=== PATIENT | female | born 1950 | race Asian ===

== ENCOUNTER 2016-12-16 19:55 | Inpatient (IN) | payer MEDICARE ==
[~2016-12-16] VITALS: Ht 147.3 cm; Wt 53.9 kg
--- NOTE | 2016-12-16 21:36 | ED CLINICAL REPORT ---
Clinical Report - Physicians/Mid Levels [facility] [address] [place] [address] 12/16/2016 19:57 Patient: TARA CHURCHILL Time Seen: 20:15; initial patient contact, initial documentation, patient care assumed. Arrived- By private vehicle. Historian- patient and spouse. HISTORY OF PRESENT ILLNESS Chief Complaint: ABDOMINAL PAIN. At its maximum, severity described as moderate. When seen in the E.D., severity described as moderate. Modifying factors. Not worsened by anything. Not relieved by anything. This started yesterday and is still present. It is described as "pain" and diffuse. No radiation. The patient has had nausea, vomiting and diarrhea. No loss of appetite. No additional abdominal pain. The patient has had recent travel. Similar symptoms previously: Frequently, as bad. ( feels same as when she had sbo). Recent medical care: Not recently seen/assessed. REVIEW OF SYSTEMS The patient has had constipation. No black stools, hematemesis, difficulty with urination, pain with urination or urinary frequency. No fever, chest pain or difficulty breathing. All systems otherwise negative, except as recorded above. PAST HISTORY See nurses notes. PROBLEMS: Bowel Obstruction. --20:08 Ana Carrera R.N. ADDITIONAL SURGERIES: . Partial hysterectomy. --20:08 Ana Carrera R.N. SOCIAL HISTORY Never smoker. No alcohol use or drug use. Recent travel by airplane in the last week- [facility]. No recent foreign travel or travel in endemic area. Did not participate in outdoor activities. Is an out of state resident. Visiting locally. FAMILY HISTORY Negative. ADDITIONAL NOTES The nursing notes have been reviewed with agreement regarding the chief complaint, HPI, ROS, PMH and patient medications and allergies. PHYSICAL EXAM Vital Signs: 12/16/2016 20:00 BP: 150/83. HR: 102. RR: 18. O2 saturation: 98%. Temp: 98.7 F. Pain level now: 7/10. Have been reviewed as abnormal and appear to be correct. Blood pressure normal. Tachycardic. Respiratory rate normal. Temperature normal. Oxygen saturation normal. Appearance: Alert. Oriented X3. No acute distress. Eyes: Pupils equal, round and reactive to light. Eyes normal inspection. Neck: Normal inspection. Neck supple. CVS: Normal heart rate and rhythm. Heart sounds normal. Pulses normal. Respiratory: No respiratory distress. Breath sounds normal. Chest nontender. Abdomen: Soft. Mild tenderness diffusely. No guarding, rebound tenderness or Jackson's, obturator or psoas sign present. Bowel sounds normal. No organomegaly. No mass. Tenderness present. Back: Normal inspection. Skin: Skin warm and dry. Normal skin color. No rash. Normal skin turgor. Extremities: Extremities exhibit normal ROM. No lower extremity edema. Neuro: Oriented X 3. No motor deficit. No sensory deficit. LABS, X-RAYS, AND EKG Abdominal CT: . IMPRESSION: 1. Moderate to high-grade mid to distal small bowel obstruction with overall pattern suggesting closed-loop obstruction (versus internal hernia). 2. Otherwise negative CT abdomen and pelvis. 3. Findings discussed with GERTRUDE Starkey. All CT scans at this facility use dose modulation, iterative reconstruction, and/or weight-based dosing when appropriate to reduce radiation dose to as low as reasonably achievable. Electronically Final signed by:Can Rico MD 12/16/2016 9:32:12 PM Technologist: NATALIE. The study was interpreted by the radiologist and discussed with the radiologist. Interpretation time: 21:30. Laboratory Tests: UA-Culture if indicated: (MICAELA: 12/16/2016 20:10) ( MsgRcvd 12/16/2016 21:05) Final results Test Result Flag Units (Reference) URINE COLOR DARK YELLOW URINE APPEARANCE CLEAR URINE GLUCOSE NEGATIVE (NEGATIVE) URINE BILIRUBIN ICTOTEST POSITIVE (NEGATIVE) URINE KETONE 3+ (NEGATIVE) URINE SPECIFIC GRAVITY >= 1.030 (1.010-1.030) URINE PH 6.0 (5.0-8.0) URINE PROTEIN 1+ (NEGATIVE) URINE UROBILINOGEN 0.2 EU/dL (0.2-1.0) URINE NITRITE NEGATIVE (NEGATIVE) URINE BLOOD 2+ (NEGATIVE) URINE LEUK ESTERASE NEGATIVE (NEGATIVE) URINE RBC 10-25 rbc/hpf (0-1) URINE WBC 0-1 wbc/hpf (0-1) URINE EPITHELIAL CELLS NONE SEEN EPI/hpf (0-5) URINE BACTERIA NONE SEEN (NONE SEEN) URINE COMMENT CULT NOT INDICATED MODERATE MUCOUSURINE CULTURES ARE SET-UP BASED ON THE FOLLOWING CRITERIA:POSITIVE NITRITEPOSITIVE LEUKOCYTE ESTERASEGREATER THAN 10 WHITE BLOOD CELLSMODERATE (2+) OR GREATER BACTERIA CBC w Diff: (MICAELA: 12/16/2016 20:10) ( [facility] 12/16/2016 20:38) Final results Test Result Flag Units (Reference) WHITE BLOOD COUNT 10.3 K/uL (4.5-11.5) RED BLOOD COUNT 4.25 M/uL (4.00-5.20) HEMOGLOBIN 13.5 gm/dL (12.0-16.0) HEMATOCRIT 40.1 % (36.0-46.0) MEAN CELL VOLUME 94 fL (80-100) MEAN CORPUSCULAR HGB 32 pg (26-34) MEAN CORPUSCULAR HGB CONC 34 g/dL (31-37) RED CELL DISTRIBUTION WIDTH 12.7 % (11.6-14.8) PLATELET COUNT 428 H K/uL (150-400) NEUTROPHIL % 83.7 H % (50-75) LYMPH % 10.7 L % (25-40) MONO % 5.2 % (3-14) EOSINOPHIL % 0.3 % (0-4) BASOPHIL % 0.1 % (0-2) CMP: (MICAELA: 12/16/2016 20:10) ( [facility] 12/16[facility] 20[facility]41) Final results Test Result Flag Units (Reference) GLUCOSE 118 H mg/dL (70-110) BUN 13 mg/dL (7-18) CREATININE 0.6 mg/dL (0.6-1.3) Estimated GFR >60 mL/min Estimated GFR- >60 mL/min Note: Persistent reduction over 3 months in eGFR<60 mL/min/1.73 m2 defines CKD. Patients with eGFR values>=60 mL/min/1.73 m2 may also have CKD if evidence ofpersistent proteinuria. Additional information may be foundat [email or web address].org. SODIUM 139 mmol/L (136-145) POTASSIUM 3.9 mmol/L (3.5-5.1) CHLORIDE 101 mmol/L (98-107) CARBON DIOXIDE 26 mmol/L (21-32) CALCIUM 9.2 mg/dL (8.5-10.1) TOTAL PROTEIN 8.6 H g/dL (6.4-8.2) ALBUMIN 4.4 g/dL (3.3-5.0) BILIRUBIN, TOTAL 0.7 mg/dL (0.0-1.0) ALKALINE PHOSPHATASE 63 U/L (46-116) AST (SGOT) 20 U/L (15-37) ALT (SGPT) 25 U/L (12-78) LIPASE 96 U/L (73-393) AMYLASE 87 U/L (25-115) . PROGRESS AND PROCEDURES Course of Care: 21:39 12/16/16. asked nurse Perez to give pt the h&p admit form. Discussed case with on-call health care provider, (call returned 21:36). Reviewed test results. Agreed upon treatment plan and decision to admit. Health care provider will see patient in ED. Patient counseled in person regarding the patient's stable condition, test results, diagnosis and need for admission. Differential Diagnosis: I considered gastritis, gastroenteritis, peptic ulcer disease, gastroesophageal reflux disease, diverticulitis, colon cancer, ulcerative colitis, Crohn's disease, small bowel obstruction, adhesions, functional bowel problems, obstipation, biliary colic, cholecystitis, cholelithiasis, hepatitis, pancreatitis, common bile duct obstruction and viral syndrome as a possible cause of abdominal pain in this patient. This is a partial list of diagnoses considered. Above considerations are based on history, physical exam, reassessment, laboratory data and other information. Differential diagnosis was discussed with patient. Disposition: Admitted to Acute Care. 21:36. Condition: good and stable. CLINICAL IMPRESSION Complete small bowel obstruction. (Electronically signed by Ammy Sarah A.R.N.P. 12/17/2016 13:18)
--- NOTE | 2016-12-16 21:36 | ED NURSING NOTES ---
Clinical Report - Nurses [facility] [address] [place] [address] 12/16/2016 19:57 Patient: TARA CHURCHILL TRIAGE Triage time 08:00. Acuity: LEVEL 3. Chief Complaint: ABDOMINAL PAIN. 20:14 12/16/16. Alert. No acute distress. THERESA COMA SCORE: [place] Coma Scale: 15- eyes open spontaneously (4); best verbal response- oriented x 4 (5); best motor response- obeys commands (6). --20:14 Ana Carrera R.N. 20:00 12/16/16. BP: 150/83. HR: 102. RR: 18. O2 saturation: 98%. Temp: 98.7 F. Pain level now: 02/09. --20:14 Ana Carrera R.N. Weight: 49.8 kg stated. Height/Length: 58 inches Per Patient. BMI: 23. --20:12 Ana Carrera R.N. Medications Vitamin D Oral. --20:07 Ana Carrera R.N. Iron Oral. --20:07 Ana Carrera R.N. Allergies None. --20:07 Ana Carrera R.N. History Arrived by private vehicle. Historian: patient and family. Accompanied by family. Primary physician called the ED prior to patient's arrival (Dr Coburn in [place]). This started yesterday. ( Patient traveled to [place] from [place] on Thursday. She states she started feeling abdominal pain last night). She has had nausea, vomiting, diarrhea and constipation. ( fatigue). Last oral intake by patient was breakfast yesterday. 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 PAST MEDICAL HX: Immunizations: up-to-date. Denies current . ( Patient's spouse reports that she has had several intestinal blockages in the past that have been resolved with a scope or through other intervention (walking, hydration, etc)). SOCIAL HX: Never smoker. No alcohol use or drug use. FALL RISK ASSESSMENT: Fall risk assessment completed. No fall risk identified. NUTRITIONAL RISK ASSESSMENT: The nutritional risk assessment revealed no deficiencies. FUNCTIONAL ASSESSMENT: Functional assessment: no impairments noted. LEARNING NEEDS ASSESSMENT: The learning needs assessment revealed no barriers. SKIN INTEGRITY ASSESSMENT: Skin integrity risk assessment completed. No skin integrity risk identified. --20:14 Ana Carrera R.N. PROBLEMS: Bowel Obstruction. --20:08 Ana Carrera R.N. ADDITIONAL SURGERIES: . Partial hysterectomy. --20:08 Ana Carrera R.N. Interventions ID band on patient. To treatment room. --20:14 Ana Carrera R.N. PHYSICAL ASSESSMENT 20:16 12/16/16. Ambulatory to room. GENERAL / NEURO / PSYCH: Alert. Oriented X 4. Appears in no acute distress. HEENT: Mucous membranes are pink. RESPIRATORY: Respirations not labored. Breath sounds within normal limits. CVS: Capillary refill less than 2 seconds. GI / : Abdomen soft and nontender. Diminished bowel sounds in the RLQ and LLQ. SKIN: Skin is warm and dry. --20:16 Ana Carrera R.N. NURSING PROGRESS NOTES Patient gowned. Two patient identifiers checked. Call light placed in reach. Side rails up x 1. Bed placed in lowest position. Brakes of bed on. Patient ready for evaluation- chart flagged and notification provided. Patient informed about reason for wait and about plan of care. --20:16 Ana Carrera R.N. 20:10 12/16/2016 Site #1 started via IV in the left antecubital space with an 20g angiocath, with aseptic technique and good blood return; one attempt. Blood drawn: rainbow set. Labeled in the presence of the patient and sent to the lab. Saline lock flushed with 10 mL saline. --20:19 Cole Jane R.N. 21:17 12/16/2016 Started bag #1 1000 mL IV Fluids IV NS (Saline); bolus of 999 mL over 1 hour(s) via site #1 via IV pump. Allergies verified and confirmed 5 rights. IV patency established. IV site checked: no pain, redness, or swelling. IV flushed thoroughly pre- and post-medication administration. Completed per protocol. --21:27 Ana Carrera R.N. 21:12/16/2016 Zofran (Ondansetron HCl) IVP 4 mg given over 2 minute(s) via site #1. Allergies verified and confirmed 5 rights. IV patency established. IV site checked: no pain, redness, or swelling. IV flushed thoroughly pre- and post-medication administration. IVP given by RN. --21:25 Ana Carrera R.N. 21:25 12/16/2016 Toradol IVP 30 mg given over 2 minute(s) via site #1. Allergies verified and confirmed 5 rights. IV patency established. IV site checked: no pain, redness, or swelling. IV flushed thoroughly pre- and post-medication administration. IVP given by RN. --21:25 Ana Carrera R.N. 22:12/16/2016 Zofran IVP Response: no adverse reaction symptoms have improved. --22:04 Ana Carrera R.N. 22:04 12/16/2016 Toradol IVP Response: no adverse reaction pain is improving. Symptoms have improved the patient feels better. --22:04 Ana Carrera R.N. 22:12/16/16. 16 fr NG tube inserted in right nostril with no difficulty. Placement confirmed by auscultation and return of gastric contents. Return: clear fluid. Attached to low and intermittent suction. Patient tolerated procedure well. --22:05 Ana Carrera R.N. 22:10 12/16/2016 IV Fluids IV NS Response: no adverse reaction. 12/16/2016 22:00 BP: 159/85. HR: 95. RR: 18. O2 saturation: 99%. Pain level now: 11/10. --22:43 Ana Carrera R.N. 22:20 12/16/2016 IV Fluids IV NS Discontinued: bag #1 completed. Total amount infused: 1000 mL. IV patency established. IV site checked: no pain, redness, or swelling. IV flushed thoroughly. --22:42 Ana Carrera R.N. DISPOSITION / DISCHARGE Departure time: 23:33. Condition at departure: stable. No learning barriers present. Admitted to Acute Care. Patient's personal items include: glasses, Other belongings; items were placed in belongings bag and transported with the patient. She did not have contacts, dentures or a hearing aid. FALL RISK ASSESSMENT: Fall risk assessment completed. No fall risk identified. --23:33 Hira Sigala R.N. 23:31 12/16/16. BP: 148/80. HR: 95. RR: 16. O2 saturation: 98%. Pain level now: 09/12. --23:33 Hira Sigala R.N. Admitted to Acute Care (210). Transported via stretcher by [employer] with IV. Report was given via a phone call. Report included patient's care, treatment, medications, reviewed medication reconcilliation, and condition (including any recent changes or anticipated changes). All questions were answered. Report was acknowledged and care was transferred. (to Alban MENJIVAR). --00:25 Ana Carrera R.N. ( Report given at 23:00). --00:25 Ana Carrera R.N. Locked/Released at 12/17/2016 0:25 by Ana Carrera R.N.
--- NOTE | 2016-12-16 21:36 | ED ORDER SUMMARY ---
..... Patient: TARA CHURCHILL OrderSheet [facility] VisitID: [id number] [address] [place] [address] 66y, F Registration Date/Time: 12/16/2016 ORDER SHEET Weight: 49.8 kg (stated) Allergies: None GENERAL ORDERS: CBC w Diff Urgent (20:19 12/16/2016 DDavis R.N. per protocol) (20:19 DDavis R.N.) CMP Urgent (20:19 12/16/2016 DDavis R.N. per protocol) (20:19 DDavis R.N.) UA-Culture if indicated Urgent (20:19 12/16/2016 DDavis R.N. per protocol) (20:19 DDavis R.N.) Lipase Urgent (20:19 12/16/2016 DDavis R.N. per protocol) (20:19 DDavis R.N.) Amylase Urgent (20:12/16/2016 DDavis R.N. per protocol) (20:19 DDavis R.N.) CT Abd/Pel w Cont (No) (pending) Urgent (20:34 12/16/2016 HBivens A.R.N.P.) (Ack 20:42 Chinoimana) (21:08 MCampbell) NG Tube (21:33 12/16/2016 HBivens A.R.N.P.) (Ack 21:46 JQuivey R.N.) (22:04 RMarsden R.N.) MEDICATION ORDERS: IV FLUIDS: IV Saline Lock (20:19 12/16/2016 DDavis R.N. per protocol) (20:19 DDavis R.N.) Toradol IV 30 mg (NOW) (20:34 12/16/2016 HBivens A.R.N.P.) (Ack 20:47 RMarsden R.N.) (21:25 RMarsden R.N.) Zofran IV 4 mg (NOW) (20:34 12/16/2016 HBivens A.R.N.P.) (Ack 20:47 RMarsden R.N.) (21:25 RMarsden R.N.) IV NS : initial bolus 1000 mL (1000 mL/hr), then none - (NOW) (20:35 12/16/2016 Jay A.R.N.P.) (Ack 20:47 RMarsden R.N.) (21:27 RMarsden R.N.) ORDER SHEET NOTES: [Electronically signed by Ana Carrera R.N. (00:12/17/2016)] [Electronically signed by Ammy SarahR.N.P. (13:18 12/17/2016)] [Electronically locked/signed by Ana Carrera R.N. (00:12/17/2016)]
--- NOTE | 2016-12-16 21:36 | DIAGNOSTIC IMAGING REPORT ---
PROCEDURE: CT ABD/PELVIS WITH CONTRAST INDICATION: Nausea and vomiting. Diarrhea. History of partial hysterectomy and section. TECHNIQUE: 100 ml of Isovue 300 were injected intravenously and axial images were obtained of the entire abdomen and pelvis with sagittal and coronal reformations. COMPARISON: None. FINDINGS: ABDOMEN: A moderate to high-grade mid to distal small bowel obstruction with relatively normal proximal and distal bowel loops. Appendix is not clearly identified, but no evidence of inflammatory process. Gallbladder, liver, spleen, pancreas, kidneys, and aorta are normal. Mild to moderate degenerative changes of the lumbar spine. PELVIS: Moderate to high-grade partial small bowel obstruction. Uterus and adnexal structures are atrophic. No evidence of free fluid. IMPRESSION: 1. Moderate to high-grade mid to distal small bowel obstruction with overall pattern suggesting closed-loop obstruction (versus internal hernia). 2. Otherwise negative CT abdomen and pelvis. 3. Findings discussed with GERTRUDE Starkey. All CT scans at this facility use dose modulation, iterative reconstruction, and/or weight-based dosing when appropriate to reduce radiation dose to as low as reasonably achievable.
--- NOTE | 2016-12-16 21:36 | ED ORDER SUMMARY ---
..... Patient: TARA CHURCHILL OrderSheet [facility] VisitID: [id number] [address] [place] [address] 66y, F Registration Date/Time: 12/16/2016 ORDER SHEET Weight: 49.8 kg (stated) Allergies: None GENERAL ORDERS: CBC w Diff Urgent (20:19 12/16/2016 DDavis R.N. per protocol) (20:19 DDavis R.N.) CMP Urgent (20:19 12/16/2016 DDavis R.N. per protocol) (20:19 DDavis R.N.) UA-Culture if indicated Urgent (20:19 12/16/2016 DDavis R.N. per protocol) (20:19 DDavis R.N.) Lipase Urgent (20:19 12/16/2016 DDavis R.N. per protocol) (20:19 DDavis R.N.) Amylase Urgent (20:12/16/2016 DDavis R.N. per protocol) (20:19 DDavis R.N.) CT Abd/Pel w Cont (No) (pending) Urgent (20:34 12/16/2016 HBivens A.R.N.P.) (Ack 20:42 Chinoimana) (21:08 MCampbell) NG Tube (21:33 12/16/2016 HBivens A.R.N.P.) (Ack 21:46 JQuivey R.N.) (22:04 RMarsden R.N.) MEDICATION ORDERS: IV FLUIDS: IV Saline Lock (20:19 12/16/2016 DDavis R.N. per protocol) (20:19 DDavis R.N.) Toradol IV 30 mg (NOW) (20:34 12/16/2016 HBivens A.R.N.P.) (Ack 20:47 RMarsden R.N.) (21:25 RMarsden R.N.) Zofran IV 4 mg (NOW) (20:34 12/16/2016 HBivens A.R.N.P.) (Ack 20:47 RMarsden R.N.) (21:25 RMarsden R.N.) IV NS : initial bolus 1000 mL (1000 mL/hr), then none - (NOW) (20:35 12/16/2016 Jay A.R.N.P.) (Ack 20:47 RMarsden R.N.) (21:27 RMarsden R.N.) ORDER SHEET NOTES: [Electronically signed by Ana Carrera R.N. (00:12/17/2016)] [Electronically signed by Ammy SarahR.N.P. (13:18 12/17/2016)] [Electronically locked/signed by Ana Carrera R.N. (00:12/17/2016)]
--- NOTE | 2016-12-16 21:36 | ED NURSING NOTES ---
Clinical Report - Nurses [facility] [address] [place] [address] 12/16/2016 19:57 Patient: TARA CHURCHILL TRIAGE Triage time 08:00. Acuity: LEVEL 3. Chief Complaint: ABDOMINAL PAIN. 20:14 12/16/16. Alert. No acute distress. THERESA COMA SCORE: [place] Coma Scale: 15- eyes open spontaneously (4); best verbal response- oriented x 4 (5); best motor response- obeys commands (6). --20:14 Ana Carrera R.N. 20:00 12/16/16. BP: 150/83. HR: 102. RR: 18. O2 saturation: 98%. Temp: 98.7 F. Pain level now: 02/09. --20:14 Ana Carrera R.N. Weight: 49.8 kg stated. Height/Length: 58 inches Per Patient. BMI: 23. --20:12 Ana Carrera R.N. Medications Vitamin D Oral. --20:07 Ana Carrera R.N. Iron Oral. --20:07 Ana Carrera R.N. Allergies None. --20:07 Ana Carrera R.N. History Arrived by private vehicle. Historian: patient and family. Accompanied by family. Primary physician called the ED prior to patient's arrival (Dr Coburn in [place]). This started yesterday. ( Patient traveled to [place] from [place] on Thursday. She states she started feeling abdominal pain last night). She has had nausea, vomiting, diarrhea and constipation. ( fatigue). Last oral intake by patient was breakfast yesterday. 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 PAST MEDICAL HX: Immunizations: up-to-date. Denies current . ( Patient's spouse reports that she has had several intestinal blockages in the past that have been resolved with a scope or through other intervention (walking, hydration, etc)). SOCIAL HX: Never smoker. No alcohol use or drug use. FALL RISK ASSESSMENT: Fall risk assessment completed. No fall risk identified. NUTRITIONAL RISK ASSESSMENT: The nutritional risk assessment revealed no deficiencies. FUNCTIONAL ASSESSMENT: Functional assessment: no impairments noted. LEARNING NEEDS ASSESSMENT: The learning needs assessment revealed no barriers. SKIN INTEGRITY ASSESSMENT: Skin integrity risk assessment completed. No skin integrity risk identified. --20:14 Ana Carrera R.N. PROBLEMS: Bowel Obstruction. --20:08 Ana Carrera R.N. ADDITIONAL SURGERIES: . Partial hysterectomy. --20:08 Ana Carrera R.N. Interventions ID band on patient. To treatment room. --20:14 Ana Carrera R.N. PHYSICAL ASSESSMENT 20:16 12/16/16. Ambulatory to room. GENERAL / NEURO / PSYCH: Alert. Oriented X 4. Appears in no acute distress. HEENT: Mucous membranes are pink. RESPIRATORY: Respirations not labored. Breath sounds within normal limits. CVS: Capillary refill less than 2 seconds. GI / : Abdomen soft and nontender. Diminished bowel sounds in the RLQ and LLQ. SKIN: Skin is warm and dry. --20:16 Ana Carrera R.N. NURSING PROGRESS NOTES Patient gowned. Two patient identifiers checked. Call light placed in reach. Side rails up x 1. Bed placed in lowest position. Brakes of bed on. Patient ready for evaluation- chart flagged and notification provided. Patient informed about reason for wait and about plan of care. --20:16 Ana Carrera R.N. 20:10 12/16/2016 Site #1 started via IV in the left antecubital space with an 20g angiocath, with aseptic technique and good blood return; one attempt. Blood drawn: rainbow set. Labeled in the presence of the patient and sent to the lab. Saline lock flushed with 10 mL saline. --20:19 Cole Jane R.N. 21:17 12/16/2016 Started bag #1 1000 mL IV Fluids IV NS (Saline); bolus of 999 mL over 1 hour(s) via site #1 via IV pump. Allergies verified and confirmed 5 rights. IV patency established. IV site checked: no pain, redness, or swelling. IV flushed thoroughly pre- and post-medication administration. Completed per protocol. --21:27 Ana Carrera R.N. 21:12/16/2016 Zofran (Ondansetron HCl) IVP 4 mg given over 2 minute(s) via site #1. Allergies verified and confirmed 5 rights. IV patency established. IV site checked: no pain, redness, or swelling. IV flushed thoroughly pre- and post-medication administration. IVP given by RN. --21:25 Ana Carrera R.N. 21:25 12/16/2016 Toradol IVP 30 mg given over 2 minute(s) via site #1. Allergies verified and confirmed 5 rights. IV patency established. IV site checked: no pain, redness, or swelling. IV flushed thoroughly pre- and post-medication administration. IVP given by RN. --21:25 Ana Carrera R.N. 22:12/16/2016 Zofran IVP Response: no adverse reaction symptoms have improved. --22:04 Ana Carrera R.N. 22:04 12/16/2016 Toradol IVP Response: no adverse reaction pain is improving. Symptoms have improved the patient feels better. --22:04 Ana Carrera R.N. 22:12/16/16. 16 fr NG tube inserted in right nostril with no difficulty. Placement confirmed by auscultation and return of gastric contents. Return: clear fluid. Attached to low and intermittent suction. Patient tolerated procedure well. --22:05 Ana Carrera R.N. 22:10 12/16/2016 IV Fluids IV NS Response: no adverse reaction. 12/16/2016 22:00 BP: 159/85. HR: 95. RR: 18. O2 saturation: 99%. Pain level now: 11/10. --22:43 Ana Carrera R.N. 22:20 12/16/2016 IV Fluids IV NS Discontinued: bag #1 completed. Total amount infused: 1000 mL. IV patency established. IV site checked: no pain, redness, or swelling. IV flushed thoroughly. --22:42 Ana Carrera R.N. DISPOSITION / DISCHARGE Departure time: 23:33. Condition at departure: stable. No learning barriers present. Admitted to Acute Care. Patient's personal items include: glasses, Other belongings; items were placed in belongings bag and transported with the patient. She did not have contacts, dentures or a hearing aid. FALL RISK ASSESSMENT: Fall risk assessment completed. No fall risk identified. --23:33 Hira Sigala R.N. 23:31 12/16/16. BP: 148/80. HR: 95. RR: 16. O2 saturation: 98%. Pain level now: 09/12. --23:33 Hira Sigala R.N. Admitted to Acute Care (210). Transported via stretcher by [employer] with IV. Report was given via a phone call. Report included patient's care, treatment, medications, reviewed medication reconcilliation, and condition (including any recent changes or anticipated changes). All questions were answered. Report was acknowledged and care was transferred. (to Alban MENJIVAR). --00:25 Ana Carrera R.N. ( Report given at 23:00). --00:25 Ana Carrera R.N. Locked/Released at 12/17/2016 0:25 by Ana Carrera R.N.
--- NOTE | 2016-12-16 23:07 | History & Physical Report ---
Admission Admit Date General Admission History and Physical Examination Patient Name: Marcela Higuera Patient ID: [id number] Admission Date: December 16, 2016 Primary Care Provider: Dr. Ilya Palomo MD Attending Physician: Jay Daniels M.D. Admitting Physician: Jay Daniels M.D. Code Status: FULL CODE Room: Status: Inpatient acute care Information Source Information Source: Self, Spouse/Partner Reliability: Good History Chief Complaint nausea/vomiting and diarrhea History of Present Illness Patient is 66 year old female with no serious medical conditions that is presenting with a two day history of abdominal pain, with nausea/vomting and diarrhea. Patient had been in her usual state of health when she consumed a large breakfast on Thursday, 12/14. Patient felt relatively well for the majority of the day however towards later in the day the patient began to have cramping sensation in the abdomen. Patient went to sleep without incident, the next day the patient was having continually cramping sensation and later in the day the patient began to have nausea and vomiting. Patient tried to rest in order to relieve the symptoms she was experiencing however nothing she did offered any relief. It was at this time she saught help from the hospital. Patient arrived and was found to have an obstruction in her small intestine. Patient told us that she has had small bowel obstructions in the past, approximately 1 per year. Patient believes these are stemming from repeat c sections in the past. Patient is otherwise stable and will be admitted. Patient History 1. SBO (small bowel obstruction) 2. Diarrhea Social History Patient is currently retired, resides in [place], and is here visiting. Patient additionally is up to date on all her regular health appointments. She additionally has a regular pcp who she follows up with. Patient does not drink, smoke or use illicit substances. Patient is currently and is here with her . Family History Family history was reviewed; no changes noted. Advance Directive Durable POA-Healthcare Medications and Allergies Medications Home Medications Multivitamin Fish oil Calicium Carbonate Alendronate Current Medications Sig/Prasad Start time Last Medication Dose Route Stop Time Status Admin Acetaminophen 650 MG Q6H PRN 12/16 2299 UNV PO Hydromorphone HCl 1 MG Q6H PRN 12/16 2299 UNV IV Sodium Chloride 1,000 ML ASDIRECTED 12/16 2299 UNV IV Allergies Coded Allergies: NKA (12/16/16) Review of Systems Constitutional Malaise. Denies: Fever, Chills, Sweats, Weakness, Other. Eyes Denies: Pain, Vision Change, Conjunctival Inflammation, Eyelid Inflammation, Redness, Other. ENT Denies: Ear Pain, Ear Discharge, Nose Pain, Nasal Discharge, Nasal Congestion, Mouth Pain, Mouth Swelling, Throat Pain, Throat Swelling, Other. Respiratory Denies: Cough, Dry, SOB w/exertion, Wheezing, Hemoptysis, Pleuritic Pain, Sputum , Other. Cardiovascular Denies: Chest Pain, Palpitations, Orthopnea, PND, Edema, Light-headedness, Other. Gastrointestinal Nausea, Vomiting, Abdominal Pain, Diarrhea. Denies: Constipation, Melena, Hematochezia. Genitourinary Denies: Dysuria, Frequency, Incontinence, Hematuria, Retention, Other. Musculoskeletal Denies: Neck Pain, Shoulder Pain, Arm Pain, Back Pain, Hand Pain, Leg Pain, Foot Pain, Other. Skin Denies: Rash, Lesions, Jaundice, Bruising, Other. Neurological Denies: Weakness, Numbness, Incoordination, Change in speech, Confusion, Seizures, Other. Physical Exam General Appearance Alert, Oriented X3, No acute distress HEENT Atraumatic, PERRLA, Moist mucous membranes Lungs Clear to auscultation, Normal air movement Cardiovascular Normal S1 and S2, No murmurs, gallops, rubs Abdomen Soft, - tenderness in the epigatrium, so distention noted, rare bowel sounds Extremities No clubbing, No edema, Normal pulses, No tenderness Skin No Breakdown, No Significant Lesions Neurological Normal speech, Normal tone, Cranial nerves intact, Strength 5/5 x4 ext's, No lateralizing signs Psych/Mental Status Mood normal LAB Results Laboratory Tests 12/16 2009 Chemistry Plasma Sodium (136 - 145 mmol/L) 139 Plasma Potassium (3.5 - 5.1 mmol/L) 3.9 Plasma Chloride (98 - 107 mmol/L) 101 CO2 (Enzymatic) (21 - 32 mmol/L) 26 BUN (7 - 18 mg/dL) 13 Creatinine (0.6 - 1.3 mg/dL) 0.6 Est GFR ( Amer) (mL/min) >60 Est GFR (Non-Af Amer) (mL/min) >60 Glucose (70 - 110 mg/dL) 118 Plasma Calcium (8.5 - 10.1 mg/dL) 9.2 Total Bilirubin (0.0 - 1.0 mg/dL) 0.7 AST (15 - 37 U/L) 20 ALT (12 - 78 U/L) 25 Alkaline Phosphatase (46 - 116 U/L) 63 Total Protein (6.4 - 8.2 g/dL) 8.6 Albumin (3.3 - 5.0 g/dL) 4.4 Amylase (25 - 115 U/L) 87 Lipase (73 - 393 U/L) 96 Hematology WBC (4.5 - 11.5 K/uL) 10.3 RBC (4.00 - 5.20 M/uL) 4.25 Hgb (12.0 - 16.0 gm/dL) 13.5 Hct (36.0 - 46.0 %) 40.1 MCV (80 - 100 fL) 94 MCH (26 - 34 pg) 32 RDW (11.6 - 14.8 %) 12.7 Neut % (Auto) (50 - 75 %) 83.7 Lymph % (Auto) (25 - 40 %) 10.7 [place] % (Auto) (3 - 14 %) 5.2 Eos % (Auto) (0 - 4 %) 0.3 Baso % (Auto) (0 - 2 %) 0.1 Plt Count, EDTA (150 - 400 K/uL) 428 PUBS MCHC (31 - 37 g/dL) 34 Urines Urine Color DARK YELLOW Urine Appearance CLEAR Urine pH (5.0 - 8.0) 6.0 Ur Specific [place] (1.010 - 1.030) >= 1.030 Urine Protein (NEGATIVE) 1+ Urine Ketones (NEGATIVE) 3+ Urine Blood (NEGATIVE) 2+ Urine Nitrite (NEGATIVE) NEGATIVE Ur Bilirubin Confirm (NEGATIVE) POSITIVE Urine Urobilinogen (0.2 - 1.0 EU/dL) 0.2 Ur Leukocyte Esterase (NEGATIVE) NEGATIVE Urine RBC (0 - 1 rbc/hpf) 10-25 Urine WBC (0 - 1 wbc/hpf) 0-1 Ur Epithelial Cells (0 - 5 EPI/hpf) NONE SEEN Urine Bacteria (NONE SEEN) NONE SEEN Urine Glucose (NEGATIVE) NEGATIVE Urine Comment CULT NOT INDICATED Assessment and Plan Problem List 1. SBO (small bowel obstruction) Plan - will keep ng tube in - will keep patient npo - will await return of bowel function - if patient does not improve will repeat imaging - given quick degree of improvement in the past this should be the same 2. Diarrhea Plan - one time episode - no repeat episodes - will continue to monitor 3. Age related osteoporosis Plan - will continue with home meds
--- NOTE | 2016-12-16 23:20 | DIAGNOSTIC IMAGING REPORT ---
PROCEDURE: XR CHEST 1 VIEW INDICATION: Placement of NG tube. TECHNIQUE: Portable AP view (2250 hours). COMPARISON: None. FINDINGS: Placement of NG tube with proximal port and distal esophagus. Lungs are clear. Heart and mediastinum are normal. Thorax is normal. IMPRESSION: 1. Placement of NG tube which is somewhat high with proximal port and distal esophagus (may be advance 5-10 cm). 2. Otherwise negative chest. 3. Findings called to the emergency department (Ana).
[2016-12-16 23:44] VITALS: BP 149/85
[2016-12-17] MEDS ORDERED: MULTIVITAMIN AD1 TA1 PO (01:39)
[2016-12-17 02:37] VITALS: BP 134/67
[2016-12-17 06:38] VITALS: BP 131/68
--- NOTE | 2016-12-17 10:00 | Progress Note ---
Subjective General Patient is 66 year old female with no serious medical conditions that is presenting with a two day history of abdominal pain, with nausea/vomting and diarrhea. Patient had been in her usual state of health when she consumed a large breakfast on Thursday, 12/14. Patient felt relatively well for the majority of the day however towards later in the day the patient began to have cramping sensation in the abdomen. Patient went to sleep without incident, the next day the patient was having continually cramping sensation and later in the day the patient began to have nausea and vomiting. Patient tried to rest in order to relieve the symptoms she was experiencing however nothing she did offered any relief. It was at this time she saught help from the hospital. Patient arrived and was found to have an obstruction in her small intestine. Patient told us that she has had small bowel obstructions in the past, approximately 1 per year. Patient believes these are stemming from repeat c sections in the past. Patient is otherwise stable and will be admitted. Feeling much better, no abd. pain, no nausea or vomiting no BM but passing catrachito , no fever or chills Review of system: GI: Negative for abdominal pain nausea vomiting no bowel movements positive for passing gas Constitutional: Negative for fever chills Physical Exam Vital Signs / I&Os Vital Signs Date Time Temp Pulse Resp B/P Pulse O2 O2 Flow FiO2 Ox Delivery Rate 12/17 0638 98.6 69 18 131/68 98 Room Air 12/17 0237 98.2 68 18 134/67 96 Room Air 12/17 0204 Room Air 12/16 2344 97.5 91 18 149/85 99 Room Air I&O 12/17 0000 12/16 1600 12/16 0800 Intake Total Output Total Balance General Appearance No acute distress Lungs Clear to auscultation Cardiovascular Regular rate and rhythm, Normal S1 and S2, No murmurs, gallops, rubs Abdomen Normal bowel sounds, Soft, No tenderness (distended) Extremities No edema LAB Results Laboratory Tests 12/17 Chemistry Plasma Sodium (136 - 145 mmol/L) 144 139 Plasma Potassium (3.5 - 5.1 mmol/L) 3.8 3.9 Plasma Chloride (98 - 107 mmol/L) 107 101 CO2 (Enzymatic) (21 - 32 mmol/L) 28 26 BUN (7 - 18 mg/dL) 12 13 Creatinine (0.6 - 1.3 mg/dL) 0.5 0.6 Est GFR ( Amer) (mL/min) >60 >60 Est GFR (Non-Af Amer) (mL/min) >60 >60 Glucose (70 - 110 mg/dL) 88 118 Plasma Calcium (8.5 - 10.1 mg/dL) 8.0 9.2 Total Bilirubin (0.0 - 1.0 mg/dL) 0.7 0.7 AST (15 - 37 U/L) 16 20 ALT (12 - 78 U/L) 20 25 Alkaline Phosphatase (46 - 116 U/L) 49 63 Total Protein (6.4 - 8.2 g/dL) 6.4 8.6 Albumin (3.3 - 5.0 g/dL) 3.5 4.4 Amylase (25 - 115 U/L) 87 Lipase (73 - 393 U/L) 96 Hematology WBC (4.5 - 11.5 K/uL) 6.5 10.3 RBC (4.00 - 5.20 M/uL) 3.42 4.25 Hgb (12.0 - 16.0 gm/dL) 10.9 13.5 Hct (36.0 - 46.0 %) 32.5 40.1 MCV (80 - 100 fL) 95 94 MCH (26 - 34 pg) 32 32 RDW (11.6 - 14.8 %) 13.0 12.7 Neut % (Auto) (50 - 75 %) 65.5 83.7 Lymph % (Auto) (25 - 40 %) 27.0 10.7 [place] % (Auto) (3 - 14 %) 6.6 5.2 Eos % (Auto) (0 - 4 %) 0.6 0.3 Baso % (Auto) (0 - 2 %) 0.3 0.1 Plt Count, EDTA (150 - 400 K/uL) 358 428 PUBS MCHC (31 - 37 g/dL) 34 34 Urines Urine Color DARK YELLOW Urine Appearance CLEAR Urine pH (5.0 - 8.0) 6.0 Ur Specific [place] (1.010 - 1.030) >= 1.030 Urine Protein (NEGATIVE) 1+ Urine Ketones (NEGATIVE) 3+ Urine Blood (NEGATIVE) 2+ Urine Nitrite (NEGATIVE) NEGATIVE Ur Bilirubin Confirm (NEGATIVE) POSITIVE Urine Urobilinogen (0.2 - 1.0 EU/dL) 0.2 Ur Leukocyte Esterase (NEGATIVE) NEGATIVE Urine RBC (0 - 1 rbc/hpf) 10-25 Urine WBC (0 - 1 wbc/hpf) 0-1 Ur Epithelial Cells (0 - 5 EPI/hpf) NONE SEEN Urine Bacteria (NONE SEEN) NONE SEEN Urine Glucose (NEGATIVE) NEGATIVE Urine Comment CULT NOT INDICATED Assessment and Plan Problem List 1. SBO (small bowel obstruction) Plan continue NG tub, for 1-2 days, if no improvment will need work up, usually improves, monitor lyts 2. Diarrhea Plan seems resolved
[2016-12-17 11:32] VITALS: BP 135/68
--- NOTE | 2016-12-17 13:18 | ED MAR SUMMARY ---
..... Medication Administration Record [facility] [address] [place] [address] Patient: TARA CHURCHILL Visit ID: [id number] 66y, F Weight: 49.8 kg Height/Length: 58 in BMI: 23 ALLERGIES: None Start 21:17 12/16/2016 Ana Carrera R.N., Stop 22:12/16/2016 Ana Carrera R.N. Medication Administered: IV NS (SALINE), Dose: IV Fluids, Bolus: 999 mL over 1 hour(s), Dispensed: 1000 mL bag, Site: #1 left AC. Medication Ordered: IV NS : initial bolus 1000 mL (1000 mL/hr), then none - (NOW). Given 21:12/16/2016 Ana Carrera R.N. Medication Administered: ZOFRAN [IVP] (ONDANSETRON HCL), Dose: 4 mg IVP over 2 minute(s), Site: #1 left AC. Medication Ordered: Zofran IV 4 mg (NOW). Given 21:12/16/2016 Ana Carrera R.NiMke Medication Administered: TORADOL [IVP], Dose: 30 mg IVP over 2 minute(s), Site: #1 left AC. Medication Ordered: Toradol IV 30 mg (NOW).
--- NOTE | 2016-12-17 13:18 | ED DISCHARGE INSTRUCTIONS ---
Patient: TARA CHURCHILL General Instructions [facility] VisitID: [id number] [address] [place] [address] 66y, F Registration Date/Time: 12/16/2016 Complete small bowel obstruction. (Electronically signed by Ammy Sarah A.R.N.P. 12/17/2016 13:18)
--- NOTE | 2016-12-17 13:18 | ED MED RECONCILIATION SUMMARY ---
Patient: TARA CHURCHILL Medication Reconciliation Report [facility] VisitID: [id number] [address] [place] [address] 66y, F Registration Date/Time: 12/16/2016 Weight: 49.8 kg Height/Length: 58 in. BMI: 23.0 ALLERGIES: None The patient's Home Medications are listed below: THE FOLLOWING MEDICATIONS NEED TO BE RECONCILED: Iron Oral Vitamin D Oral The source(s) of the original Home Medication information: Not obtained. The following Medications were given to the patient in the Emergency Department: Toradol [IVP] IVP 30 mg, administered: 12/16/2016 9:25:00 PM Zofran [IVP] IVP 4 mg, administered: 12/16/2016 9:20:00 PM IV NS IV Fluids bolus 999 mL over 1 hour(s), administered: 12/16/2016 9:17:00 PM The following Medications were prescribed to the patient: None.
--- NOTE | 2016-12-17 13:18 | ED MED RECONCILIATION SUMMARY ---
Patient: TARA CHURCHILL Medication Reconciliation Report [facility] VisitID: [id number] [address] [place] [address] 66y, F Registration Date/Time: 12/16/2016 Weight: 49.8 kg Height/Length: 58 in. BMI: 23.0 ALLERGIES: None The patient's Home Medications are listed below: THE FOLLOWING MEDICATIONS NEED TO BE RECONCILED: Iron Oral Vitamin D Oral The source(s) of the original Home Medication information: Not obtained. The following Medications were given to the patient in the Emergency Department: Toradol [IVP] IVP 30 mg, administered: 12/16/2016 9:25:00 PM Zofran [IVP] IVP 4 mg, administered: 12/16/2016 9:20:00 PM IV NS IV Fluids bolus 999 mL over 1 hour(s), administered: 12/16/2016 9:17:00 PM The following Medications were prescribed to the patient: None.
--- NOTE | 2016-12-17 13:18 | ED MAR SUMMARY ---
..... Medication Administration Record [facility] [address] [place] [address] Patient: TARA CHURCHILL Visit ID: [id number] 66y, F Weight: 49.8 kg Height/Length: 58 in BMI: 23 ALLERGIES: None Start 21:17 12/16/2016 Ana Carrera R.N., Stop 22:12/16/2016 Ana Carrera R.N. Medication Administered: IV NS (SALINE), Dose: IV Fluids, Bolus: 999 mL over 1 hour(s), Dispensed: 1000 mL bag, Site: #1 left AC. Medication Ordered: IV NS : initial bolus 1000 mL (1000 mL/hr), then none - (NOW). Given 21:12/16/2016 Ana Carrera R.N. Medication Administered: ZOFRAN [IVP] (ONDANSETRON HCL), Dose: 4 mg IVP over 2 minute(s), Site: #1 left AC. Medication Ordered: Zofran IV 4 mg (NOW). Given 21:12/16/2016 Ana Carrera R.NMike Medication Administered: TORADOL [IVP], Dose: 30 mg IVP over 2 minute(s), Site: #1 left AC. Medication Ordered: Toradol IV 30 mg (NOW).
--- NOTE | 2016-12-17 13:18 | ED DISCHARGE INSTRUCTIONS ---
Patient: TARA CHURCHILL General Instructions [facility] VisitID: [id number] [address] [place] [address] 66y, F Registration Date/Time: 12/16/2016 Complete small bowel obstruction. (Electronically signed by Ammy Sarah A.R.N.P. 12/17/2016 13:18)
[2016-12-17 15:00] VITALS: BP 134/79
[2016-12-17 18:38] VITALS: BP 112/62
[2016-12-17 22:58] VITALS: BP 131/68
[2016-12-18 02:35] VITALS: BP 123/63
[2016-12-18 06:41] VITALS: BP 120/71
[2016-12-18 10:46] VITALS: BP 125/63
--- NOTE | 2016-12-18 13:41 | DISCHARGE SUMMARY ---
ADMIT DATE: 12/16/2016 DISCHARGE DATE: 12/18/2016 DISCHARGE DIAGNOSES: 1. Small bowel obstruction, resolved 2. Diarrhea, resolved BRIEF HISTORY: This is a 66-year-old white female who was admitted on 2016, presented to the ED with a 2 day history of abdominal pain with nausea and vomiting and also diarrhea. Started with a cramping sensation in abdomen and went to sleep and woke up having continuous pain in the abdomen and lateral later in the day. Also with nausea and vomiting. Since the symptoms did not resolve, the patient had to come to emergency. The patient states that this is usual for her; she gets a small-bowel obstruction once usually every year or every 2 years, and this is because of the scar tissue she had after section in the past. HOSPITAL COURSE: The patient was admitted to acute care and was put on nasogastric tube, IV hydration, and pain medication to manage the pain. The patient did really well and got really better today, and NG tube was discontinued this morning after stopping suction last night. Then the patient was put on clear liquid diet, which she tolerated well, and then was started on full liquid diet and tolerated it well. She is doing fine now. No nausea, no vomiting, no abdominal pain. Ambulating and ready to go home, and diarrhea resolved. PHYSICAL EXAMINATION: VITAL SIGNS: Temperature 98.6, pulse is 98, respirations 18, blood pressure 125/63, and oxygen saturation 100% on room air. LUNGS: Clear to auscultation. HEART: Regular S1 and S2. No murmur. No S3 was heard. ABDOMEN: Soft, nontender. Bowel sounds are positive. EXTREMITIES: No edema. LAB/IMAGING: Today, white blood count is 8.8, hemoglobin is 10.3, stable relatively, hematocrit is 31.6, platelet count is 352. Sodium is 143, potassium is 4.1, chloride is 109, CO2 is 14, BUN is 9, creatinine 0.5, and calcium is 7.7. DISCHARGE INSTRUCTIONS/MEDICATIONS: Disposition: The patient will be discharged home to follow up with her primary care physician in [place] within 1 week. Discharge medications will be back to her regular outpatient medications, including alendronate 70 mg once a day and multivitamin, fish oil and calcium supplement.
== END 2016-12-18 14:30 | disposition home or self-care (01) | DRG 390 ==
LOC: ED SRH 19:55 → TRANS SRH 23:18 → ACUTE2 SRH 23:18 → TRANS SRH 23:18 → ACUTE2 SRH 12-17 00:08 → TRANS SRH 12-17 00:08 → ACUTE2 SRH 12-17 00:08
PROVIDERS: ADMIT Emergency Medicine
PROC: 0D9670Z Drainage of Stomach with Drainage Device, Via Natural or Artificial Opening (ICD-10-PCS; principal; 2016-12-16)
DX: K56.5 Intestinal adhesions [bands] with obstruction (postinfection) (principal); R19.7 Diarrhea, unspecified

== ENCOUNTER 2016-12-30 18:54 | Emergency (ER) | payer MEDICARE ==
[~2016-12-30 18:54] MED LIST: MULTIVITAMIN AD1 TA1 PO
--- NOTE | 2016-12-30 20:43 | ED ORDER SUMMARY ---
..... Patient: TARA CHURCHILL OrderSheet [facility] VisitID: [id number] [place] [address] 66y, F Registration Date/Time: 12/30/2016 ORDER SHEET Weight: 49.8 kg (stated) Allergies: No Known Drug Allergy GENERAL ORDERS: CBC w Diff Urgent (19:40 12/30/2016 Dmitri SOTO) (Ack 19:44 Chantel [facility] Assembly Lead Person) (19:58 Isaak) MEDICATION ORDERS: IV FLUIDS: ORDER SHEET NOTES: [Electronically signed by Hira Sigala R.N. (21:05 12/30/2016)] [Electronically signed by Joseluis Mandel MD (12:06 12/31/2016)] [Electronically locked/signed by Hira Sigala R.N. (21:05 12/30/2016)]
--- NOTE | 2016-12-30 20:43 | ED ORDER SUMMARY ---
..... Patient: TARA CHURCHILL OrderSheet [facility] VisitID: [id number] [place] [address] 66y, F Registration Date/Time: 12/30/2016 ORDER SHEET Weight: 49.8 kg (stated) Allergies: No Known Drug Allergy GENERAL ORDERS: CBC w Diff Urgent (19:40 12/30/2016 Dmitri SOTO) (Ack 19:44 Chant[facility] [employer]) (19:58 Isaak) MEDICATION ORDERS: IV FLUIDS: ORDER SHEET NOTES: [Electronically signed by Hira Sigala R.N. (21:05 12/30/2016)] [Electronically signed by Joseluis Mandel MD (12:06 12/31/2016)] [Electronically locked/signed by Hira Sigala R.N. (21:05 12/30/2016)]
--- NOTE | 2016-12-30 20:43 | ED NURSING NOTES ---
Clinical Report - Nurses [facility] [address] [place] [address] 12/30/2016 18:54 Patient: TARA CHURCHILL TRIAGE Triage time 19:Dec 30 2016. Acuity: LEVEL 4. Chief Complaint: NOSEBLEED. Alert. No acute distress. --19:08 Aman Ragsdale R.N. 19:00 12/30/16. BP: 165/80. HR: 99. RR: 16. O2 saturation: 99% on room air. Temp: 97.9 F. --19:08 Aman Ragsdale R.N. Weight: 49.8 kg stated. Height/Length: 58 inches Per Patient. BMI: 23. --19:00 Aman Ragsdale R.N. Medications None. --19:01 Aman Ragsdale R.N. Allergies No Known Drug Allergy. --19:01 Aman Ragsdale R.N. History Arrived by private vehicle. Historian: patient and family. Accompanied by family. ( Pt's current nosebleed started 30 minutes ago. She was admitted here 2 weeks ago for a bowel obstruction and an NG tube was placed in her R nare. She has since had another nosebleed and was seen at [facility] for this on Thursday, where she was given Afrin and sent home with nasal clamps. Today she presents with an active bleed, nasal clamps in place, expectorating blood into an emesis bag.). PAST MEDICAL HX: Immunizations: up-to-date. SOCIAL HX: Never smoker. No alcohol use or drug use. No infectious disease exposure. ABUSE ASSESSMENT: No report of abuse. SELF HARM ASSESSMENT: A self harm assessment was performed. The patient answered "no" to the question "Have you recently felt down, depressed, or hopeless?". FALL RISK ASSESSMENT: Fall risk assessment completed. No fall risk identified. NUTRITIONAL RISK ASSESSMENT: The nutritional risk assessment revealed no deficiencies. FUNCTIONAL ASSESSMENT: Functional assessment: no impairments noted. LEARNING NEEDS ASSESSMENT: The learning needs assessment revealed no barriers. SKIN INTEGRITY ASSESSMENT: Skin integrity risk assessment completed. No skin integrity risk identified. --19:08 Aman Ragsdale R.N. PROBLEMS: Bowel Obstruction. --19: Aman Ragsdale R.N. ADDITIONAL SURGERIES: . Partial hysterectomy. --19: Aman Ragsdale R.N. Interventions ID band on patient. To treatment room. --19:08 Aman Ragsdale R.N. PHYSICAL ASSESSMENT Ambulatory to room. GENERAL / NEURO / PSYCH: Alert. Appears anxious. HEENT: Pupils equal, round and reactive to light. Right-nare active bleeding from uncertain location. Dried nasal blood present. Nares within normal limits. RESPIRATORY: Respirations not labored. SKIN: Skin is warm and dry. --19:09 Aman Ragsdale R.N. NURSING PROGRESS NOTES The plan of care for this patient has been created. Monitoring of patient in place. Patient gowned. Head of bed elevated. Reassurance given. Two patient identifiers checked. Call light placed in reach. Side rails up. Bed placed in lowest position. Patient ready for evaluation- chart flagged and ED physician notified. --19:09 Aman Ragsdale R.N. late entry - 19:10. ( Dr. Mandel in to see Pt briefly.). --19:49 Aman Ragsdale R.N. Patient ID band checked for patient name and birthdate: patient confirmed. Blood samples drawn from the left antecubital space with 23g butterfly by tech per protocol ; labeled in presence of the patient and sent to lab: [facility]. (1954). --19:59 Alma Grace 20:33 12/30/16. BP: 126/76. HR: 93. RR: 16. O2 saturation: 96% on room air. --20:34 Aman Ragsdale R.N. ( MD at bedside discussing DC POC with Pt, provided Pt with nasal clamps per request.). --20:39 Aman Ragsdale R.N. 20:48 Dried blood cleaned from around pt nose. The patient is calm and resting quietly. GENERAL / NEURO / PSYCH: Alert. Oriented X 4. RESPIRATORY: No respiratory distress. SKIN: Skin is warm and dry. --20:52 Hira Sigala R.N. DISPOSITION / DISCHARGE Departure time: 20:51. Condition at departure: stable. No learning barriers present. Discharge instructions provided and reviewed with the patient and spouse. Patient and spouse verbalized understanding. Written instructions provided in [place]. The patient was discharged home and accompanied by spouse. She left the Emergency Department ambulatory and via private vehicle. Spouse driving. FALL RISK ASSESSMENT: Fall risk assessment completed. No fall risk identified. --20:52 Hira Sigala R.N. 20:45 12/30/16. BP: 138/71. HR: 89. RR: 16. O2 saturation: 97% on room air. Pain level now: 0/10. --20:52 Hira Sigala R.N. Locked/Released at 12/30/2016 21:05 by Hira Sigala R.N.
--- NOTE | 2016-12-30 20:43 | ED CLINICAL REPORT ---
Clinical Report - Physicians/Mid Levels [facility] [address] [place] [address] 12/30/2016 18:54 Patient: TARA CHURCHILL Time Seen: 18:59. Arrived- By private vehicle. Historian- patient. HISTORY OF PRESENT ILLNESS Chief Complaint: NOSEBLEED. Since today and is now gone. It was abrupt in onset. Location- right nare. The patient has had epistaxis. (NG tube 12/16 x 3 days for SBO 12/27 Nose bleed treated at [facility] ED with lidocaine and afrin R sided 12/30 Start 1814 Placed clamp at 1825 bled until 1914. The patient has applied clamp pressure to the nose x 60 minutes). Similar symptoms previously: Once. Recent medical care: The patient was seen recently at another facility in the emergency department. REVIEW OF SYSTEMS No fever, chills, cough, difficulty breathing or abdominal pain. No general bleeding problems. PAST HISTORY PCP: Christophe Hancock Ops: 3 C sections and hyst, Hosp: SBO with, x 3-4. SOCIAL HISTORY The patient lives with spouse. ADDITIONAL NOTES The nursing notes have been reviewed. PHYSICAL EXAM Vital Signs: 12/30/2016 20:45 BP: 138/71. HR: 89. RR: 16. O2 saturation: 97%. Pain level now: 0/10. 12/30/2016 20:33 BP: 126/76. HR: 93. RR: 16. O2 saturation: 96%. 12/30/2016 19:00 BP: 165/80. HR: 99. RR: 16. O2 saturation: 99%. Temp: 97.9 F. Appearance: Alert. No acute distress. Nose: Small amount of right-nare fresh clots. Small amount of right-nare dried blood. No dried blood on left. No active bleeding, nasal discharge or mucosal inflammation or tenderness to palpation/percussion over the sinuses. (I can see a small non bleeding artery on the R side of the nasal septum). Neck: Normal inspection. Neck supple. Respiratory: No respiratory distress. Breath sounds normal. LABS, X-RAYS, AND EKG Laboratory Tests: CBC w Diff: (MICAELA: 12/30/2016 19:42) ( MsgRcvd 12/30/2016 20:02) Final results Test Result Flag Units (Reference) WHITE BLOOD COUNT 6.5 K/uL (4.5-11.5) RED BLOOD COUNT 3.69 L M/uL (4.00-5.20) HEMOGLOBIN 11.7 L gm/dL (12.0-16.0) HEMATOCRIT 35.2 L % (36.0-46.0) MEAN CELL VOLUME 96 fL (80-100) MEAN CORPUSCULAR HGB 32 pg (26-34) MEAN CORPUSCULAR HGB CONC 33 g/dL (31-37) RED CELL DISTRIBUTION WIDTH 12.9 % (11.6-14.8) PLATELET COUNT 527 H K/uL (150-400) NEUTROPHIL % 71.8 % (50-75) LYMPH % 20.3 L % (25-40) MONO % 6.2 % (3-14) EOSINOPHIL % 1.3 % (0-4) BASOPHIL % 0.4 % (0-2) . PROGRESS AND PROCEDURES Course of Care: Ms Churchill is visiting from [place]. She definitely has an anterior epistaxis which has resolved with direct pressure. I spoke with Dr Sia Lira who will see her tomorrow. CLINICAL IMPRESSION Acute anterior epistaxis INSTRUCTIONS (FOR RE BLEED 15 + 15 MINUTES OF PRESSURE. IF IT WON'T STOP THEN, RETURN TO ED TOMORROW. CALL DR JUNITO LIRA [phone] ([facility]) Test Result WHITE BLOOD COUNT 6.5 RED BLOOD COUNT 3.69 HEMOGLOBIN 11.7 HEMATOCRIT 35.2 MEAN CELL VOLUME 96 MEAN CORPUSCULAR HGB 32 MEAN CORPUSCULAR HGB CONC 33 RED CELL DISTRIBUTION WIDTH 12.9 PLATELET COUNT 527 NEUTROPHIL % 71.8 LYMPH % 20.3 MONO % 6.2 EOSINOPHIL % 1.3 BASOPHIL % 0.4). Understanding of the discharge instructions verbalized by patient and family. Follow-up with: Junito Lira MD, ENT, , [address], , [facility], [id number] Follow up. Reason for referral: DR LIRA WANTED TO SEE ME. (Electronically signed by Joseluis Mandel MD 12/31/2016 12:06)
--- NOTE | 2016-12-30 20:43 | ED CLINICAL REPORT ---
Clinical Report - Physicians/Mid Levels [facility] [address] [place] [address] 12/30/2016 18:54 Patient: TARA CHURCHILL Time Seen: 18:59. Arrived- By private vehicle. Historian- patient. HISTORY OF PRESENT ILLNESS Chief Complaint: NOSEBLEED. Since today and is now gone. It was abrupt in onset. Location- right nare. The patient has had epistaxis. (NG tube 12/16 x 3 days for SBO 12/27 Nose bleed treated at [facility] ED with lidocaine and afrin R sided 12/30 Start 1814 Placed clamp at 1825 bled until 1914. The patient has applied clamp pressure to the nose x 60 minutes). Similar symptoms previously: Once. Recent medical care: The patient was seen recently at another facility in the emergency department. REVIEW OF SYSTEMS No fever, chills, cough, difficulty breathing or abdominal pain. No general bleeding problems. PAST HISTORY PCP: Christophe Hancock Ops: 3 C sections and hyst, Hosp: SBO with, x 3-4. SOCIAL HISTORY The patient lives with spouse. ADDITIONAL NOTES The nursing notes have been reviewed. PHYSICAL EXAM Vital Signs: 12/30/2016 20:45 BP: 138/71. HR: 89. RR: 16. O2 saturation: 97%. Pain level now: 0/10. 12/30/2016 20:33 BP: 126/76. HR: 93. RR: 16. O2 saturation: 96%. 12/30/2016 19:00 BP: 165/80. HR: 99. RR: 16. O2 saturation: 99%. Temp: 97.9 F. Appearance: Alert. No acute distress. Nose: Small amount of right-nare fresh clots. Small amount of right-nare dried blood. No dried blood on left. No active bleeding, nasal discharge or mucosal inflammation or tenderness to palpation/percussion over the sinuses. (I can see a small non bleeding artery on the R side of the nasal septum). Neck: Normal inspection. Neck supple. Respiratory: No respiratory distress. Breath sounds normal. LABS, X-RAYS, AND EKG Laboratory Tests: CBC w Diff: (MICAELA: 12/30/2016 19:42) ( MsgRcvd 12/30/2016 20:02) Final results Test Result Flag Units (Reference) WHITE BLOOD COUNT 6.5 K/uL (4.5-11.5) RED BLOOD COUNT 3.69 L M/uL (4.00-5.20) HEMOGLOBIN 11.7 L gm/dL (12.0-16.0) HEMATOCRIT 35.2 L % (36.0-46.0) MEAN CELL VOLUME 96 fL (80-100) MEAN CORPUSCULAR HGB 32 pg (26-34) MEAN CORPUSCULAR HGB CONC 33 g/dL (31-37) RED CELL DISTRIBUTION WIDTH 12.9 % (11.6-14.8) PLATELET COUNT 527 H K/uL (150-400) NEUTROPHIL % 71.8 % (50-75) LYMPH % 20.3 L % (25-40) MONO % 6.2 % (3-14) EOSINOPHIL % 1.3 % (0-4) BASOPHIL % 0.4 % (0-2) . PROGRESS AND PROCEDURES Course of Care: Ms Churchill is visiting from [place]. She definitely has an anterior epistaxis which has resolved with direct pressure. I spoke with Dr Sia Lira who will see her tomorrow. CLINICAL IMPRESSION Acute anterior epistaxis INSTRUCTIONS (FOR RE BLEED 15 + 15 MINUTES OF PRESSURE. IF IT WON'T STOP THEN, RETURN TO ED TOMORROW. CALL DR JUNITO LIRA [phone] ([facility]) Test Result WHITE BLOOD COUNT 6.5 RED BLOOD COUNT 3.69 HEMOGLOBIN 11.7 HEMATOCRIT 35.2 MEAN CELL VOLUME 96 MEAN CORPUSCULAR HGB 32 MEAN CORPUSCULAR HGB CONC 33 RED CELL DISTRIBUTION WIDTH 12.9 PLATELET COUNT 527 NEUTROPHIL % 71.8 LYMPH % 20.3 MONO % 6.2 EOSINOPHIL % 1.3 BASOPHIL % 0.4). Understanding of the discharge instructions verbalized by patient and family. Follow-up with: Junito Lira MD, ENT, , [address], , [facility], [id number] Follow up. Reason for referral: DR LIRA WANTED TO SEE ME. (Electronically signed by Joseluis Mandel MD 12/31/2016 12:06)
--- NOTE | 2016-12-31 12:06 | ED DISCHARGE INSTRUCTIONS ---
Patient: TARA CHURCHILL General Instructions [facility] VisitID: [id number] [address] [place], [place] [id number] 66y, F Registration Date/Time: 12/30/2016 Acute anterior epistaxis INSTRUCTIONS (FOR RE BLEED 15 + 15 MINUTES OF PRESSURE. IF IT WON'T STOP THEN, RETURN TO ED TOMORROW. CALL DR JUNITO LIRA [phone] ([facility]) Test Result WHITE BLOOD COUNT 6.5 RED BLOOD COUNT 3.69 HEMOGLOBIN 11.7 HEMATOCRIT 35.2 MEAN CELL VOLUME 96 MEAN CORPUSCULAR HGB 32 MEAN CORPUSCULAR HGB CONC 33 RED CELL DISTRIBUTION WIDTH 12.9 PLATELET COUNT 527 NEUTROPHIL % 71.8 LYMPH % 20.3 MONO % 6.2 EOSINOPHIL % 1.3 BASOPHIL % 0.4). Understanding of the discharge instructions verbalized by patient and family. Follow-up with: Junito Lira MD, ENT, , [address], , [facility] [place], [id number] Follow up. Reason for referral: DR LIRA WANTED TO SEE ME. ADDITIONAL INFORMATION Nosebleed [Adult] Bleeding from the nose most commonly occurs due to injury or drying and cracking of the inner lining of the nose. This can occur during a "common cold," "hay fever" attack, a very hot day, or from dry air in the winter. High blood pressure and hardening of the arteries (atherosclerosis) may also cause nosebleeds. If the bleeding site is found, it may be treated with a chemical or heat or electricity to cause a blood clot to form (cauterized). If the bleeding continues after cautery or if the bleeding site cannot be found, a packing may be placed in your nose to apply pressure and stop the bleeding. The packing may be made of gauze or sponge. A small balloon catheter is sometimes used. These need to be removed by your doctor. Some types of packing dissolve on their own. Home Care: If a packing was put in your nose, unless told otherwise, do not pull on it or try to remove it yourself. You will be given an appointment to have it removed. You may also have been given antibiotics to prevent a sinus infection. If so, complete all the medicine. Do not blow your nose for 12 hours after the bleeding stops. This will allow a strong blood clot to form. Do not pick your nose. This may restart bleeding. Avoid alcohol and hot liquids for the next two days. Alcohol or hot liquids in your mouth can dilate blood vessels in your nose and cause bleeding to start again. Do not take ibuprofen (Advil, Motrin), naprosyn (Aleve) or aspirin-containing medicines since these thin the blood and may promote nose bleeding. You may take Tylenol (acetaminophen) for pain, unless another pain medicine was prescribed. If the bleeding starts again, sit up and lean forward to prevent swallowing blood. Pinch your nose tightly for exactly 5 minutes (watch the clock). If bleeding is not controlled, continue to pinch and call your doctor or return to this facility. If high blood pressure was a cause for your nosebleed, have your blood pressure checked again tomorrow. If you have a "cold" or "hay fever" or dry nasal membranes, lubricate the nasal passages by applying a small amount of Vaseline inside the nose with a Q-tip twice a day (morning and night). Avoid overheating your home, which can dry the air and worsen your condition. Follow Up with your doctor as advised for packing removal. Nasal packing should be rechecked or removed within 2-3 days. Get Prompt Medical Attention if any of the following occur: Another nosebleed that you cannot control Dizziness, weakness or fainting Fever of 100.4F (38C) or higher, or as directed by your healthcare provider Headache Sinus or facial pain Shortness of breath or trouble breathing You have been given the following additional information: Epistaxis (Adult) (Electronically signed by Joseluis Mandel MD 12/31/2016 12:06)
--- NOTE | 2016-12-31 12:06 | ED DISCHARGE INSTRUCTIONS ---
Patient: TARA CHURCHILL General Instructions [facility] VisitID: [id number] [address] [place], [place] [id number] 66y, F Registration Date/Time: 12/30/2016 Acute anterior epistaxis INSTRUCTIONS (FOR RE BLEED 15 + 15 MINUTES OF PRESSURE. IF IT WON'T STOP THEN, RETURN TO ED TOMORROW. CALL DR JUNITO LIRA [phone] ([facility]) Test Result WHITE BLOOD COUNT 6.5 RED BLOOD COUNT 3.69 HEMOGLOBIN 11.7 HEMATOCRIT 35.2 MEAN CELL VOLUME 96 MEAN CORPUSCULAR HGB 32 MEAN CORPUSCULAR HGB CONC 33 RED CELL DISTRIBUTION WIDTH 12.9 PLATELET COUNT 527 NEUTROPHIL % 71.8 LYMPH % 20.3 MONO % 6.2 EOSINOPHIL % 1.3 BASOPHIL % 0.4). Understanding of the discharge instructions verbalized by patient and family. Follow-up with: Junito Lira MD, ENT, , [address], , [facility] [place], [id number] Follow up. Reason for referral: DR LIRA WANTED TO SEE ME. ADDITIONAL INFORMATION Nosebleed [Adult] Bleeding from the nose most commonly occurs due to injury or drying and cracking of the inner lining of the nose. This can occur during a "common cold," "hay fever" attack, a very hot day, or from dry air in the winter. High blood pressure and hardening of the arteries (atherosclerosis) may also cause nosebleeds. If the bleeding site is found, it may be treated with a chemical or heat or electricity to cause a blood clot to form (cauterized). If the bleeding continues after cautery or if the bleeding site cannot be found, a packing may be placed in your nose to apply pressure and stop the bleeding. The packing may be made of gauze or sponge. A small balloon catheter is sometimes used. These need to be removed by your doctor. Some types of packing dissolve on their own. Home Care: If a packing was put in your nose, unless told otherwise, do not pull on it or try to remove it yourself. You will be given an appointment to have it removed. You may also have been given antibiotics to prevent a sinus infection. If so, complete all the medicine. Do not blow your nose for 12 hours after the bleeding stops. This will allow a strong blood clot to form. Do not pick your nose. This may restart bleeding. Avoid alcohol and hot liquids for the next two days. Alcohol or hot liquids in your mouth can dilate blood vessels in your nose and cause bleeding to start again. Do not take ibuprofen (Advil, Motrin), naprosyn (Aleve) or aspirin-containing medicines since these thin the blood and may promote nose bleeding. You may take Tylenol (acetaminophen) for pain, unless another pain medicine was prescribed. If the bleeding starts again, sit up and lean forward to prevent swallowing blood. Pinch your nose tightly for exactly 5 minutes (watch the clock). If bleeding is not controlled, continue to pinch and call your doctor or return to this facility. If high blood pressure was a cause for your nosebleed, have your blood pressure checked again tomorrow. If you have a "cold" or "hay fever" or dry nasal membranes, lubricate the nasal passages by applying a small amount of Vaseline inside the nose with a Q-tip twice a day (morning and night). Avoid overheating your home, which can dry the air and worsen your condition. Follow Up with your doctor as advised for packing removal. Nasal packing should be rechecked or removed within 2-3 days. Get Prompt Medical Attention if any of the following occur: Another nosebleed that you cannot control Dizziness, weakness or fainting Fever of 100.4F (38C) or higher, or as directed by your healthcare provider Headache Sinus or facial pain Shortness of breath or trouble breathing You have been given the following additional information: Epistaxis (Adult) (Electronically signed by Joseluis Mandel MD 12/31/2016 12:06)
--- NOTE | 2016-12-31 12:06 | ED MED RECONCILIATION SUMMARY ---
Patient: TARA CHURCHILL Medication Reconciliation Report [facility] VisitID: [id number] [address] [place] [address] 66y, F Registration Date/Time: 12/30/2016 Weight: 49.8 kg Height/Length: 58 in. BMI: 23.0 ALLERGIES: No Known Drug Allergy The patient's Home Medications are listed below: NONE. The source(s) of the original Home Medication information: Not obtained. The following Medications were given to the patient in the Emergency Department: None. The following Medications were prescribed to the patient: None.
--- NOTE | 2016-12-31 12:06 | ED MAR SUMMARY ---
..... Medication Administration Record [facility] [address] [place], [place] [id number] Patient: TARA CHURCHILL Visit ID: [id number] 66y, F Weight: 49.8 kg Height/Length: 58 in BMI: 23 ALLERGIES: No Known Drug Allergy
--- NOTE | 2016-12-31 12:06 | ED MAR SUMMARY ---
..... Medication Administration Record [facility] [address] [place], [place] [id number] Patient: TARA CHURCHILL Visit ID: [id number] 66y, F Weight: 49.8 kg Height/Length: 58 in BMI: 23 ALLERGIES: No Known Drug Allergy
--- NOTE | 2016-12-31 12:06 | ED MED RECONCILIATION SUMMARY ---
Patient: TARA CHURCHILL Medication Reconciliation Report [facility] VisitID: [id number] [address] [place] [place] [address] 66y, F Registration Date/Time: 12/30/2016 Weight: 49.8 kg Height/Length: 58 in. BMI: 23.0 ALLERGIES: No Known Drug Allergy The patient's Home Medications are listed below: NONE. The source(s) of the original Home Medication information: Not obtained. The following Medications were given to the patient in the Emergency Department: None. The following Medications were prescribed to the patient: None.
== END 2016-12-30 20:51 | disposition home or self-care (01) ==
LOC: ED SRH 18:54
DX: R04.0 Epistaxis (principal)
CPT/HCPCS: 95059